=== PATIENT | female | born 1990 | race Caucasian/White ===

== ENCOUNTER 2021-05-25 20:20 | Inpatient (IN) ==
[2021-05-25 21:11] LABS: Basophils # 0.1 10*3/uL (0.0-0.2); Basophils % 0.4 % (0.0-0.8); Eosinophils # 0.1 10*3/uL (0.0-0.87); Eosinophils % 0.5 % (0.00-10.9); Hematocrit 36.1 VOL% (35.7-47.0); Hemoglobin 12.1 GM/DL (12.0-16.0); Immature Granulocytes % 5.2 %; Immature Granulocytes Absolute 0.94 #; Lymphocytes # 3.5 10*3/uL (1.4-4.0); Lymphocytes % 19.6 % (21.3-54.2); Mean Corpuscular HGB Conc 33.5 GM/DL (32-36); Mean Corpuscular Volume 91.9 FL (87-102); Mean Platelet Volume 10.6 FL (9.6-12.0); Monocytes % 10.7 % (1.7-12.7); Neutrophils % 63.6 % (38.7-73.9); Platelet Count 310 T/CUMM (130-400); Red Blood Count 3.93 MC/CUMM (3.8-5.5); Red Cell Distribution Width 13.8 % (9.3-17.3)
[2021-05-25] MEDS: LABETALOL 100 MG TABLET PO SCH (21:33)
[2021-05-25 23:43] LABS: Bacteria,Urine Few /HPF (Few); Mucus,Urine Occasional /LPF (Occasional); Squamous Epithelial Cell,Urine Occasional /HPF (0-10)
[2021-05-25 23:49] LABS: Urine Appearance Clear (Clear); Urine Color Yellow (Yellow)
[2021-05-25 23:50] LABS: Bilirubin,Urine Negative (Negative); Blood, Urine Negative (Negative); Glucose,Urine (UA) Negative (Negative); Ketones,Urine Negative (Negative); Nitrite,Urine Negative (Negative); Protein,Urine Negative; Urine Specific Gravity 1.015 (1.001-1.035); Urine Urobilinogen 0.2 EU/DL (<2.0); Urine pH 6.5 (4.5-8.0)
[2021-05-26] MEDS ORDERED: AMPICILLIN INJ 2,000 MG in SODIUM CHLORIDE 0.9% 100 ML IV ONE (00:01)
[2021-05-26 01:27] LABS: Band Neutrophils 3 % (0-10); Lymphocytes 25 % (20-55); Platelet Estimate Normal; Segmented Neutrophils 64 % (50-85); Total Cells Counted 100
[2021-05-26] MEDS: AMPICILLIN INJ 1,000 MG in SODIUM CHLORIDE 0.9% 100 ML IV SCH ×3 (04:13→13:00)
[2021-05-26] MEDS: LABETALOL 100 MG TABLET PO SCH ×3 (05:01→18:05)
[2021-05-26] MEDS ORDERED: BUTORPHANOL 2 MG/ML VIAL ONE (07:10)
[2021-05-26] MEDS: MEPERIDINE 50 MG/1 ML VIAL IV PRN ×4 (07:14→21:08)
[2021-05-26] MEDS: LACTATED RINGERS 1,000 ML IV SCH (09:33)
[2021-05-26 09:36] LABS: INR 0.9; PT Patient Result 10.2 SECS (10.5-12.0); Partial Thromboplastin Time 22.4 SECS (23.8-32.1)
[2021-05-26 13:15] LABS: Protein/Creatinine Ratio,Urine 0.2 RATIO
[2021-05-26] MEDS: ONDANSETRON 4 MG/2 ML VIAL IV PRN (21:04)
[2021-05-27] MEDS: MEPERIDINE 50 MG/1 ML VIAL IV PRN ×4 (00:42→07:44)
[2021-05-27] MEDS: LABETALOL 100 MG TABLET PO SCH ×4 (01:59→22:15)
[2021-05-27] MEDS ORDERED: OXYTOCIN/LR 20 UNIT/1,000 ML BAG IV SCH (04:00)
[2021-05-27] MEDS: LACTATED RINGERS 1,000 ML IV SCH ×2 (04:05→18:43)
[2021-05-27] MEDS: AMPICILLIN INJ 1,000 MG in SODIUM CHLORIDE 0.9% 100 ML IV SCH (04:50)
[2021-05-27] MEDS: ONDANSETRON 4 MG/2 ML VIAL IV PRN (07:48)
[2021-05-27] MEDS ORDERED: diphenhydrAMINE 50 MG/1 ML VIAL IV PRN ×2 (08:30)
[2021-05-27] MEDS ORDERED: hydrOXYzine HCL 25 MG/1 ML VIAL IM PRN (08:30)
[2021-05-27] MEDS ORDERED: ePHEDrine 50 MG/ML VIAL IV PRN (08:30)
[2021-05-27] MEDS ORDERED: LACTATED RINGERS 1,000 ML IV ONE ×2 (08:30→10:25)
[2021-05-27] MEDS ORDERED: FAMOTIDINE 20 MG/2 ML VIAL IV ONE (08:30)
[2021-05-27] MEDS ORDERED: PROMETHAZINE 25 MG/1 ML VIAL IM ONE (08:30)
[2021-05-27] MEDS ORDERED: NALOXONE 0.4 MG/ML VIAL IV PRN (08:30)
[2021-05-27] MEDS ORDERED: CITRIC ACID/SODIUM CITRATE 30 ML UDCUP PO ONE (08:30)
[2021-05-27] MEDS ORDERED: fentaNYL 2 MCG/ROPIV 0.2% EPID 100 ML EPIDURAL SCH (08:30)
[2021-05-27] MEDS ORDERED: ceFAZolin 3,000 MG in SYRINGE 1 EACH IV ONE (08:50)
[2021-05-27] MEDS ORDERED: SODIUM CHLORIDE 0.9% 0 ML IV ONE (08:57)
[2021-05-27] MEDS ORDERED: TRANEXAMIC ACID 1,000 MG/10 ML VIAL ONE (08:57)
[2021-05-27] MEDS ORDERED: CARBOPROST TROMETHAMINE 250 MCG/ML AMP IM ONE ×2 (08:57→10:10)
[2021-05-27] MEDS ORDERED: miSOPROStoL 200 MCG TABLET ONE (08:57)
[2021-05-27] MEDS ORDERED: METHYLERGONOVINE 0.2 MG/1 ML AMP ONE (08:57)
[2021-05-27] MEDS ORDERED: ONDANSETRON 4 MG/2 ML VIAL ONE (09:02)
[2021-05-27] MEDS ORDERED: BUPIVACAINE SPINAL 0.75% 2 ML AMP SPINAL ONE (09:02)
[2021-05-27] MEDS ORDERED: METOCLOPRAMIDE 10 MG/2 ML VIAL ONE (09:07)
[2021-05-27] MEDS ORDERED: OXYTOCIN 10 UNIT/ML VIAL ONE (09:37)
[2021-05-27] MEDS ORDERED: OXYTOCIN/LR 20 UNIT/1,000 ML BAG IV ONE ×2 (10:00→13:46)
[2021-05-27] MEDS ORDERED: MIDAZOLAM 2 MG/2 ML VIAL ONE (10:10)
[2021-05-27 10:14] LABS: Cord Arterial Blood HCO3 22.9 MMOL/L
[2021-05-27 10:17] LABS: Cord Venous Blood HCO3 23.5 MMOL/L; Cord Venous Blood PO2 28.3
[2021-05-27 10:19] LABS: Bacteria,Urine Occasional /HPF (Few); Glucose,Urine (UA) Negative (Negative); Ketones,Urine Negative (Negative); Mucus,Urine Occasional /LPF (Occasional); Protein,Urine Negative; RBC,Urine 1 /HPF (0-4); Urine Appearance Clear (Clear); Urine Color Yellow (Yellow)
[2021-05-27 10:20] LABS: Bilirubin,Urine Negative (Negative); Blood, Urine Trace mg/dL (Negative); Nitrite,Urine Negative (Negative); Urine Urobilinogen 0.2 EU/DL (<2.0)
[2021-05-27] MEDS ORDERED: KETOROLAC 30 MG/1 ML VIAL ONE (10:25)
[2021-05-27] MEDS ORDERED: LABETALOL 20 MG/4 ML SYRINGE IV ONE (10:39)
[2021-05-27] MEDS: ACETAMINOPHEN 500 MG TABLET PO SCH ×2 (13:10→18:43)
[2021-05-27] MEDS ORDERED: IBUPROFEN 800 MG TABLET PO PRN (13:46)
[2021-05-27] MEDS ORDERED: DIPH/TET/ACEL PERT BOOSTER VACCINE 0.5 ML VIAL IM ONE (13:46)
[2021-05-27] MEDS ORDERED: MEASLES/MUMPS/RUBELLA VACCINE 0.5 ML VIAL SUBCUT ONE (13:46)
[2021-05-27] MEDS ORDERED: ACETAMINOPHEN 325 MG TABLET PO PRN (13:46)
[2021-05-27] MEDS ORDERED: ONDANSETRON 4 MG/2 ML VIAL IV PRN (13:46)
[2021-05-27] MEDS ORDERED: HYDROCORTISONE 2.5% RECTAL CREAM 30 GM TUBE TOP PRN (13:46)
[2021-05-27] MEDS ORDERED: BENZOCAINE 20%/MENTHOL 0.5% SPRAY 56 GM CAN TOP PRN (13:46)
[2021-05-27] MEDS ORDERED: BISACODYL 10 MG SUPP RECTAL PRN (13:46)
[2021-05-27] MEDS ORDERED: RHO(D) IMMUNE GLOBULIN 300 MCG SYRINGE IM ONE (13:46)
[2021-05-27] MEDS ORDERED: oxyCODONE/ACETAMINOPHEN 5-325 MG TABLET PO PRN (13:46)
[2021-05-27] MEDS ORDERED: WITCH HAZEL PADS 100/JAR TOP PRN (13:46)
[2021-05-27] MEDS ORDERED: LANOLIN 50% CREAM 0.3 OZ TUBE TOP PRN (13:46)
[2021-05-27] MEDS: KETOROLAC 30 MG/1 ML VIAL IV SCH (17:32)
[2021-05-27] MEDS: ceFAZolin 2,000 MG/50 ML DUPLEX IV SCH (17:33)
[2021-05-27] MEDS: DOCUSATE SODIUM 100 MG CAPSULE PO SCH (23:20)
[2021-05-28] MEDS: KETOROLAC 30 MG/1 ML VIAL IV SCH ×2 (00:29→05:52)
[2021-05-28] MEDS: ceFAZolin 2,000 MG/50 ML DUPLEX IV SCH (00:31)
[2021-05-28] MEDS: oxyCODONE/ACETAMINOPHEN 5-325 MG TABLET PO PRN ×3 (00:43→18:25)
[2021-05-28] MEDS: ACETAMINOPHEN 500 MG TABLET PO SCH (01:06)
[2021-05-28 05:58] LABS: Basophils # 0.1 10*3/uL (0.0-0.2); Basophils % 0.3 % (0.0-0.8); Eosinophils # 0.1 10*3/uL (0.0-0.87); Eosinophils % 0.5 % (0.00-10.9); Hematocrit 32.7 VOL% (35.7-47.0); Hemoglobin 10.8 GM/DL (12.0-16.0); Immature Granulocytes % 2.7 %; Immature Granulocytes Absolute 0.51 #; Lymphocytes # 2.5 10*3/uL (1.4-4.0); Lymphocytes % 13.5 % (21.3-54.2); Mean Corpuscular Volume 94.5 FL (87-102); Mean Platelet Volume 11.1 FL (9.6-12.0); Platelet Count 290 T/CUMM (130-400); Red Blood Count 3.46 MC/CUMM (3.8-5.5); Red Cell Distribution Width 13.9 % (9.3-17.3); White Blood Count 18.7 T/CUMM (4-12)
[2021-05-28 06:22] LABS: Hypochromia 1+; Lymphocytes 11 % (20-55); Microcytosis 1+; Platelet Estimate Adequate; Segmented Neutrophils 86 % (50-85); Total Cells Counted 100
[2021-05-28] MEDS: LABETALOL 100 MG TABLET PO SCH ×3 (06:41→21:35)
[2021-05-28] MEDS: DOCUSATE SODIUM 100 MG CAPSULE PO SCH ×2 (08:52→21:35)
[2021-05-28] MEDS ORDERED: MAGNESIUM HYDROXIDE SUSP 30 ML UDCUP PO ONE (22:15)
[2021-05-29] MEDS: LABETALOL 100 MG TABLET PO SCH ×2 (00:02→06:50)
[2021-05-29] MEDS ORDERED: POLYETHYLENE GLYCOL POWDER 17 GM PACK PO PRN (00:14)
[2021-05-29] MEDS ORDERED: MAGNESIUM CITRATE 300 ML BOTTLE PO ONE (04:09)
[2021-05-29 07:27] VITALS: BP 123/72
[2021-05-29] MEDS: DOCUSATE SODIUM 100 MG CAPSULE PO SCH (09:26)
== END 2021-05-29 12:50 | disposition home or self-care (01) | DRG 787 ==
LOC: N.LDOUT 20:20 → N.LD 20:24 → N.OB 05-27 13:39
PROVIDERS: ADMIT Specialist; ATTEND Specialist
PROC: LDCSECT (ICD-10-PCS; 2021-05-27 09:30)